=== PATIENT | female | born 1970 | race Caucasian/White ===

== ENCOUNTER 2017-12-29 20:08 | Emergency (ER) | payer MEDICAID ==
[~2017-12-29] VITALS: Ht 172.7 cm; Wt 122.7 kg
[2017-12-29 20:18] VITALS: Ht 172.7 cm; Wt 122.7 kg
[2017-12-29] MEDS ORDERED: VIBRAMYCIN 100100 MG PO (21:01)
[2017-12-29] MEDS ORDERED: PHENERGAN DM SYR5 ML PO (21:02)
[2017-12-29 21:14] VITALS: BP 120/78
== END 2017-12-29 21:17 | disposition home or self-care (01) ==
LOC: D.ER 20:08
DX: J06.9 Acute upper respiratory infection, unspecified (principal); J02.9 Acute pharyngitis, unspecified; R09.89 Other specified symptoms and signs involving the circulatory and respiratory systems; F17.200 Nicotine dependence, unspecified, uncomplicated

== ENCOUNTER 2018-06-02 14:00 | Emergency (ER) | payer MEDICAID ==
[~2018-06-02] VITALS: Ht 172.7 cm; Wt 120.5 kg
[~2018-06-02 14:00] MED LIST: PHENERGAN DM SYR5 ML PO; VIBRAMYCIN 100100 MG PO
[2018-06-02 14:13] VITALS: Ht 172.7 cm; Wt 120.5 kg
[2018-06-02] MEDS ORDERED: BACLOFEN20 M1 PO (16:37)
[2018-06-02] MEDS ORDERED: VOLTAREN75 MG PO (16:37)
[2018-06-02 16:56] VITALS: BP 128/78
== END 2018-06-02 16:59 | disposition home or self-care (01) ==
LOC: D.ER 14:00
DX: M54.2 Cervicalgia (principal)

== ENCOUNTER 2018-07-30 21:41 | Emergency (ER) | payer MEDICAID ==
[~2018-07-30] VITALS: Ht 172.7 cm; Wt 120.0 kg
[~2018-07-30 21:41] MED LIST changes: +BACLOFEN20 M1 PO; +VOLTAREN75 MG PO
[2018-07-30 22:06] VITALS: Ht 172.7 cm; Wt 120.0 kg
[2018-07-30 23:34] LABS: HEMATOCRIT 38.5 % (36.0-48.0); HEMOGLOBIN 12.4 g/dL (12-16); LYMPHOCYTES 31.3 % (15-50); MCH 27.6 pg (26.0-34.0); MCHC 32.2 g/dL (31.0-37.0); MCV 85.7 fL (80.0-100.0); MEAN PLATELET VOLUME 8.9 fL (7.4-10.4); NEUTROPHILS 64.1 % (40-80); RBC 4.49 10x6/uL (4.00-5.40); RDW 16.7 % (11.5-14.5); WBC 12.4 10x3/uL (4.8-10.8)
[2018-07-30 23:36] LABS: PLATELET COUNT 434 10x3/uL (130-400)
[2018-07-30 23:57] LABS: ALBUMIN 2.8 g/dL (3.4-5.0); ALKALINE PHOSPHATASE 100 U/L (46-116); ALT (SGPT) 14 U/L (10-68); AMYLASE - SERUM 41 U/L (25-115); BILIRUBIN - TOTAL 0.19 mg/dL (0.2-1.3); CALC OSMOLALITY 275 mosm/kg (275-300); CALCIUM 8.6 mg/dL (8.5-10.1); CARBON DIOXIDE 28.9 mmol/L (21.0-32.0); CHLORIDE - SERUM 103 mmol/L (98-107); GLUCOSE 90 mg/dL (74-106); LIPASE 169 U/L (73-393); PROTEIN - SERUM 7.1 g/dL (6.4-8.2); SODIUM 139 mmol/L (136-145); UREA NITROGEN 7 mg/dL (7-18); eGFR NON AFRICAN AMERICAN 63 mL/min (90-120)
[2018-07-30 23:58] LABS: TROPONIN-I < 0.017 ng/mL (0.000-0.060)
[2018-07-31 00:01] LABS: POTASSIUM - SERUM 2.8 mmol/L (3.5-5.1)
[2018-07-31 00:17] LABS: APPEARANCE CLEAR (CLEAR); BILIRUBIN NEGATIVE (NEGATIVE); COLOR YELLOW (YELLOW); GLUCOSE NEGATIVE (NEGATIVE); KETONE NEGATIVE (NEGATIVE); NITRITE NEGATIVE (NEGATIVE); PROTEIN NEGATIVE (NEGATIVE); SPECIFIC GRAVITY 1.005 (1.005-1.020); UROBILINOGEN NORMAL (NORMAL)
[2018-07-31 00:18] LABS: BACTERIA MODERATE /hpf (NONE SEEN); EPITHELIAL CELLS 0-5 /hpf (0-5); RED CELLS - URINE 0-5 /hpf (0-5); WHITE CELLS - URINE 0-5 /hpf (0-5)
[2018-07-31] MEDS ORDERED: ZOFRAN4 MG PO (02:33)
[2018-07-31] MEDS ORDERED: MACROBID100 MG PO (02:33)
[2018-07-31 03:32] VITALS: BP 123/82
== END 2018-07-31 03:32 | disposition home or self-care (01) ==
LOC: D.ER 21:41
PROVIDERS: Family Medicine
DX: R10.9 Unspecified abdominal pain (principal); E87.6 Hypokalemia; N39.0 Urinary tract infection, site not specified